=== PATIENT | male | born 2000 | race African-American/Black ===

== ENCOUNTER 2019-08-09 10:58 | Outpatient (CLI) | payer OTHER ==
--- NOTE | 2019-08-09 15:33 | MRI ---
MRI RIGHT KNEE WITHOUT CONTRAST: HISTORY: Knee injury. M23.91. Injured knee on Wednesday. Medial knee pain. FINDINGS: MEDIAL MENISCUS: There is a horizontal tear superior articular surface of the body and posterior horn medial meniscus which does not extend into the root attachment. The medial meniscal femoral ligament and meniscal li gament are partially torn. LATERAL MENISCUS: Intact. Complete rupture proximal fibers anterior cruciate ligament. Posterior cruciate ligament is intact. Full-thickness rupture of the posterior oblique and anterior longitudinal components of the mediocol lateral ligament. The lateral collateral ligament is intact. EXTENSOR MECHANISM: There is moderate tendinosis of the quadriceps tendon. Patella and patella tendon are intact. The t ibial tuberosity-trochlear groove distance measures 13 mm. CARTILAGE: PATELLOFEMORAL COMPARTMENT: Intact. MEDIAL COMPARTMENT: Intact. LATERAL COMPARTMENT: Intact. BONES: Contusion of the lateral femoral condyle and posterolateral tibial rim. No contrecoup contusion. SOFT TISSUES: Large joint effusion. Low-grade I injury of vastus medialis. Low-grade partial tear of soleus. IMPRESSION: 1. Full-thickness rupture anterior cruciate ligament proximal fibers. 2. Horizontal tear throughout the superior 20% body and posterior horn medial meniscus articular ishan face sprain of the root attachment. There is accompanying avulsion of the medial meniscal femoral an d meniscal tibial ligaments. 3. Full-thickness rupture of the anterior longitudinal and posterior oblique fibers mediocollateral ligament retracted 1-2 cm. The distal insertional fibers are intact. 4. Contusions of the lateral femoral condyle and lateral tibial plateau without osteochondral defect . 5. Intact posterolateral corner. POS: [facility]
== END 2019-08-09 10:59 | disposition home or self-care (01) ==
LOC: SCSMRI 10:58
PROVIDERS: ATTEND Orthopaedic Surgery
DX: M23.91 Unspecified internal derangement of right knee (principal); S83.511A Sprain of anterior cruciate ligament of right knee, initial encounter; S83.411A Sprain of medial collateral ligament of right knee, initial encounter

== ENCOUNTER 2019-08-18 08:13 | Observation (INO) | payer OTHER ==
[2019-08-18] MEDS ORDERED: Fentanyl 100 MCG/2 ML VIAL ONE ×4 (09:29→13:33)
[2019-08-18] MEDS ORDERED: Midazolam HCl 2 mg/2 ml Vial ONE (09:29)
[2019-08-18] MEDS ORDERED: Promethazine HCl 25 MG/ML VIAL IM PRN (10:14)
[2019-08-18] MEDS ORDERED: traMADol HCl 50 MG TAB PO PRN ×2 (10:14)
[2019-08-18] MEDS ORDERED: Ropivacaine 0.2% 550 ML 550 ML NERVE BLCK SCH (10:14)
[2019-08-18] MEDS ORDERED: HYDROcodone/Acetaminophen 10/325 mg Tablet PO PRN ×2 (10:14)
[2019-08-18] MEDS ORDERED: Zolpidem Tartrate 5 MG TAB PO PRN (10:14)
[2019-08-18] MEDS ORDERED: Ondansetron PF 4 MG/2 ML Vial IVP PRN (10:14)
[2019-08-18] MEDS ORDERED: Fentanyl 100 MCG/2 ML VIAL SLOW IVP PRN (10:15)
[2019-08-18] MEDS ORDERED: Ropivacaine 0.5% HCl/PF (150 MG/30 ML VIAL) ONE (13:20)
[2019-08-18] MEDS ORDERED: Ropivacaine 0.2% HCl/PF (40 MG/20 ML VIAL) ONE (13:20)
[2019-08-18] MEDS ORDERED: HYDROmorphone 2 MG/ML VIAL ONE (14:22)
[2019-08-18] MEDS ORDERED: Methocarbamol 500 MG TAB PO PRN (14:40)
[2019-08-18] MEDS ORDERED: HYDROcodone/Acetaminophen 7.5/325 mg Tablet PO PRN ×2 (14:40)
[2019-08-18] MEDS ORDERED: Bisacodyl 10 MG SUPP PR PRN (14:40)
[2019-08-18] MEDS ORDERED: diphenhydrAMINE 50 MG CAP PO PRN (14:40)
[2019-08-18] MEDS ORDERED: Morphine 4 MG/ML VIAL SLOW IVP PRN (14:40)
[2019-08-18] MEDS ORDERED: Morphine 2 MG/ML SYRINGE SLOW IVP PRN (14:40)
[2019-08-18] MEDS ORDERED: Acetaminophen 500 MG TAB PO PRN (14:40)
[2019-08-18] MEDS ORDERED: Milk Of Magnesia 30 ML UDCUP PO PRN (14:40)
[2019-08-18] MEDS ORDERED: PROPOFOL 200 MG/20 ML VIAL ONE (14:46)
[2019-08-18] MEDS ORDERED: Dexamethasone 20 MG/5 ML VIAL ONE (14:46)
[2019-08-18] MEDS ORDERED: Ondansetron PF 4 MG/2 ML Vial ONE (14:46)
[2019-08-18] MEDS ORDERED: Lidocaine 1% PF 5 ML VIAL ONE (14:46)
[2019-08-18] MEDS ORDERED: Vancomycin HCl 500 MG VIAL ONE (14:51)
[2019-08-18] MEDS: Dextrose 5 %-0.45 % NaCl 1,000 ML IV SCH (17:46)
[2019-08-18] MEDS: Ketorolac Tromethamine 30 MG/ML VIAL IVP SCH ×2 (18:10→18:30)
[2019-08-18] MEDS: CEFAZOLIN 2 GM in Premix Bag 1 BAG IVPB SCH (18:11)
[2019-08-18 19:40] VITALS: BMI 36.9
[2019-08-18] MEDS: Famotidine 20 MG TAB PO SCH (20:45)
--- NOTE | 2019-08-18 21:27 | OP ---
DATE OF PROCEDURE: 08/18/2019 POSTOPERATIVE DIAGNOSES: Right knee anterior cruciate ligament tear as well as complete grade 3 injury to medial collateral ligament and the medial side of the knee and a capsule disruption of the posterior horn and body of the medial meniscus. POSTOPERATIVE DIAGNOSES: Right knee anterior cruciate ligament tear as well as complete grade 3 injury to medial collateral ligament and the medial side of the knee and a capsule disruption of the posterior horn and body of the medial meniscus. PROCEDURES PERFORMED: 1. Exam under anesthesia, right lower extremity. 2. Right knee arthroscopy with arthroscopically assisted anterior cruciate ligament reconstruction. 3. Open medial collateral ligament repair. 4. Medial meniscus repair done both arthroscopic and open means. PIPE LINE WALKER: Jeffrey Layne PA-C ESTIMATED BLOOD LOSS: Around 300 mL. COMPLICATIONS: None. ANESTHESIA: He did have a general anesthetic. He also had a preoperative blocks in his knee. IMPLANTS: 7 x 25 metal interference screw on the femur, bicortical screw with a washer on the tibia. On the medial aspect of the knee, we have a two 4.75 SwiveLock that were used for a SutureBridge as well as primary repair of the medial collateral ligament. We also put multiple sets of sutures in to repair the medial meniscus. DISPOSITION: He went to recovery room in stable condition. INDICATIONS FOR PROCEDURE: This 19-year-old male, comes in complaining of an injury from the right knee that occurred about a week ago playing football. He was felt to have a completely unstable medial compartment and MRI confirmed medial sided injury including a grade 3 MCL injury and an ACL tear. At this time, he opted to have surgery. DESCRIPTION OF PROCEDURE: After all appropriate consent forms were explained and signed, she was taken back to the operative room and at this time was given general anesthetic. Once the level of anesthesia was appropriate, exam under anesthesia was done. Positive Amy's was noted and again even in hyperextension, the medial aspect of the knee looked open. It was felt at this time this would need to be repaired. At this time, tourniquet was placed on the right thigh. Leg was placed in arthroscopic leg bernal. The limb was then prepped and draped in standard surgical fashion. The limb was exsanguinated and the tourniquet was taken to 300 mmHg. Midline incision was made with 10 blade down through skin. Bovie was used to coagulate any brisk venous bleeding. New blade was used to take paratenon off the underlying patellar tendon. At this time, a central third patellar tendon graft was harvested using a double 10 blade saw and osteotome. This was taken to back table and made, so that our femoral side was a size 9 and the tibial side was a size 10. We then loosely closed our graft site with multiple interrupted Vicryl sutures. At this time, an inferolateral portal was established. Scope was placed into the knee joint. A needle localization technique was then used to make a medial working portal. Diagnostic arthroscopy commenced in the notch. There was a tremendous amount of blood. We cleaned this out. Once we were able to visualize everything, the torn ACL was noted. The remnant was removed with a shaver. PCL was intact. Lateral compartment was entered. Femur, tibia, and meniscus were in good condition. The medial compartment showed good cartilage on the femur and tibia. However, the majority of the posterior horn going into the body was pulled off the capsule and was found to be unstable and be able to be pulled into the joint. Again with the knee completely gapped open, we also noted as the procedure continued that the medial aspect started to gain water from the scope. The pressure was turned down to limit extravasation, but again this did occur throughout the procedure. The patellofemoral joint was found to be normal. Gutters were swept through and were found to be intact. At this time, we used a combination of inside-out technique as well as all-inside technique to place some sutures into the meniscus. We placed three sets of sutures being horizontal and vertical mattress sutures with our outside-in technique along the body of the meniscus going into the posterior horn. For far posterior horn, we placed a Speed cinch devices from [employer] and used this to tighten down our posterior horn itself. Once that was done, we did not tie our sutures at this time, but just clipped them with a hemostat. We then went about doing our ACL. The knee was flexed up after notchplasty was performed and through the medial portal and [id number] jig was used to place a pin up and out the anterolateral thigh. We then reamed this with a 9 mm reamer to a depth of 30. All loose bony cartilaginous debris was removed from the knee joint. At this time, our tibial guide was set at 52.5 degrees and was used to pull pin up into the knee joint. A 10 mm reamer was then used to ream our tibial tunnel up into the knee joint. Again, all loose bony cartilaginous debris was removed from the knee joint. The edges were smoothed off with a rasp and maris and once this was done, we then went dry. We flexed the knee up one more time and used the pin to pull our passing suture up into the knee joint. This was then pulled down our tibial tunnel and used to pull our graft up into the knee. A 7 x 25 metal interference screw was then used to fixate our femoral plug. Once this was done, we drilled, tapped, and placed a bicortical screw with a smooth washer, tying our posts over top of this for our tibial fixation. This was done in full extension and posterior drawer being applied. Once this was done, ACL felt good. We then turned our attention to our medial repair. A large open medial incision was made with a 10 blade down through skin. Bovie was used to coagulate any brisk venous bleeding. We then carefully took off the fascia using a deep knife preserving this for later closure. Once we got through the fascia, we were able to visualize our injury to our MCL. The MCL was found to be pulled off the femur and there was a gap there that was palpable. We cut into that. The large extravasation of bloody fluid was noted and this pulled literally right off the bone. This bone area was raw. We then were able to get down underneath the MCL and tie our sutures on the capsule of the joint. Once we tied our sutures from our meniscus repair, we then drilled, tapped, and placed 4.75 SwiveLock on the femur at the medial epicondyle and used the sutures in mattress fashion to take full-thickness combination of deep capsule and MCL and repair that back down to the bone. Once this was tied, we then took and tied multiple knots. We then took it backwards proximally going through the edge and incorporating the proximal edge of the injury and tied this again. This closed down our rent nicely. We then used multiple Vicryl sutures to close the anterior and posterior to this. We then took our 2 tape devices lying on top of the MCL, followed them all the way down to the MCL insertion just above the hamstring origin, drilled, tapped, and placed our anchor in this region for our SutureBridge. This was done with the knee in full extension and a little bit of slack in the system. Once this was done, our tourniquet reached the 2-hour time limit. Sponges were placed into our wounds. Tourniquet was let down. We then spent holding pressure of 10 minutes or so. We then coagulated the brisk venous bleeding. We then thoroughly irrigated and dried. We closed our more superficial fascial layer with a running Vicryl and once this was done, we tested our knee stability. Again, we were found to be significantly better with a little bit opening in flexion, but in full extension, we were found to be rock solid. At this time, we have finished closing this wound with 2-0 Vicryl and surgical raisa. Once that was done, we turned our attention to our ACL incision. We were able to thoroughly irrigate and dry this area. We then bone grafted our patellar and tibial defect sites as well as placing a little bit of the bone into the tibial tunnel area. We then ran a Vicryl to close our paratenon layer followed by 2-0 Vicryl in a more surgical raisa to close this incision. At this time, a bulky sterile dressing was applied as well as his Polar Care unit and his brace locked in full extension. At this time, the patient was awakened. He was taken to recovery room in stable condition. All counts were correct at the end of the case and he did receive preoperative IV antibiotics. Job ID: [id number]
[2019-08-19] MEDS: Ketorolac Tromethamine 30 MG/ML VIAL IVP SCH ×3 (00:14→12:12)
[2019-08-19] MEDS: CEFAZOLIN 2 GM in Premix Bag 1 BAG IVPB SCH (00:15)
[2019-08-19] MEDS: Dextrose 5 %-0.45 % NaCl 1,000 ML IV SCH (03:56)
[2019-08-19] MEDS: Famotidine 20 MG TAB PO SCH (08:36)
[2019-08-19 11:31] VITALS: BP 149/65; TEMP 99.2
== END 2019-08-19 12:53 | disposition home or self-care (01) ==
LOC: SDC 08:13 → SURG B 16:22
PROVIDERS: ADMIT Orthopaedic Surgery; ATTEND Orthopaedic Surgery
PROC: 0MQN4ZZ Repair Right Knee Bursa and Ligament, Percutaneous Endoscopic Approach (ICD-10-PCS; principal; 2019-08-18)
PROC: 0MSN0ZZ Reposition Right Knee Bursa and Ligament, Open Approach (ICD-10-PCS; 2019-08-18)
PROC: 3E0T3BZ Introduction of Anesthetic Agent into Peripheral Nerves and Plexi, Percutaneous Approach (ICD-10-PCS; 2019-08-18)
PROC: 3E0T3BZ Introduction of Anesthetic Agent into Peripheral Nerves and Plexi, Percutaneous Approach (ICD-10-PCS; 2019-08-18)
DX: S83.511A Sprain of anterior cruciate ligament of right knee, initial encounter (principal); S83.241A Other tear of medial meniscus, current injury, right knee, initial encounter; S83.094A Other dislocation of right patella, initial encounter; G89.18 Other acute postprocedural pain; X58.XXXA Exposure to other specified factors, initial encounter; Y93.61 Activity, american tackle football
CPT/HCPCS: 96361; 96365; 96375; 96376; A4306; C1713; G0378; J0690; J1100; J1170; J1885; J2001; J2250; J2405; J2704; J2795; J3010; J3370